=== PATIENT | male | born 1990 | race Caucasian/White ===

== ENCOUNTER 2021-03-18 07:46 | Emergency (ER) | payer OTHER, SELFPAY ==
--- NOTE | ~2021-03-18 | XR_ITS ---
EXAMINATION: XR knee RT min 4V DATE: 03/18/2021 08:08 INDICATION: Right knee pain TECHNIQUE: Four views of the left knee were obtained. COMPARISON: None. FINDINGS: Alignment is normal. No fracture or osteochondral lesion. Joint spaces are normal with no e rosions. No joint effusion/synovitis. Soft tissues are unremarkable. IMPRESSION: 1. No acute osseous abnormality. Reviewed, dictated and finalized at location [facility]
[2021-03-18 07:47] VITALS: BP 161/115; PULSE 98; RESP 14; O2SAT 95
--- NOTE | 2021-03-18 08:20 | ED.LOWEXIN ---
HPI - Extremity Injury (Lower) General Chief Complaint: Extremity Injury, Lower Stated Complaint: R KNEE PAIN ? DISLOCATION Time Seen by Provider: 03/18/21 07:51 Source: patient Mode of arrival: EMS Limitations: no limitations History of Present Illness HPI Narrative: 31-year-old otherwise healthy here with complaints of right knee pain since last few hours. Patient states that he was lifting something heavy and felt a pop in his right knee. Unable to bear weight. He denies any other injuries or complaints at this time. He also mentions that he had previous history of patellar dislocation. MD complaint: knee injury Onset (ago): hour(s) (1) Injury: Right: knee Type of Injury: unknown Place: home Severity: moderate Relieving factors: immobilization Exacerbating factors: weight bearing and movement Context: other (lifting) Associated symptoms: snap/pop sensation Other symptoms: none Related Data Allergies Allergy/AdvReac Type Severity Reaction Status Date / Time Sulfa (Sulfonamide Allergy Unknown Verified 03/18/21 07:50 Antibiotics) Review of Systems Review of Systems: All systems reviewed & are unremarkable except as noted in HPI and below Constitutional: Constitutional: Reports no additional constitutional complaints Eyes: Eyes: Reports no additional eye complaints ENT: Reports system reviewed and no additional complaints, except as documented Cardiovascular: Cardiovascular: Reports no additional cardiovascular complaints Respiratory: Respiratory: Reports no additional respiratory complaints Gastrointestinal: Gastrointestinal: Reports no additional gastrointestinal complaints Musculoskeletal: Musculoskeletal: Reports as per HPI Neurologic: Reports system reviewed and no additional complaints, except as documented Exam Narrative: GENERAL: Well-appearing, well-nourished, and in no acute distress. HEAD: Normocephalic, atraumatic. EYES: PERRLA and EOMI. NECK: Supple. CHEST: Clear to auscultation. No respiratory distress. HEART: Regular rate and rhythm. No murmur heard. Normal peripheral pulses.. EXTREMITIES: Examination of the right knee shows no marked tenderness on gentle palpation. No obvious deformity noted no joint effusion noted painful range of motion. SKIN: Warm, dry, no rash. NEURO: No focal deficits. Alert and oriented x3. PSYCH: Normal mood and affect. Course Course Emergency Course: Inform patient about his x-ray findings. Will place a knee immobilizer. Advised him to take pain medication as prescribed. Follow-up with orthopedic process controller. Vital Signs Vital signs: Vital Signs Pulse Rate 98 03/18/21 07:47 Respiratory Rate 14 03/18/21 07:47 Blood Pressure 161/115 H 03/18/21 07:47 Pulse Oximetry 95 03/18/21 07:47 Pulse Rate 98 03/18/21 07:47 Respiratory Rate 14 03/18/21 07:47 Blood Pressure 161/115 H 03/18/21 07:47 Pulse Oximetry 95 03/18/21 07:47 Discharge Plan Discharge Clinical Impression: Knee sprain Qualifiers: Encounter type: initial encounter Involved ligament of knee: unspecified ligament Laterality: right Qualified Code(s): S83.91XA - Sprain of unspecified site of right knee, initial encounter Patient Disposition: Home, Self-Care Condition: Stable Instructions: Antibiotic Form, Knee Sprain (ED) Additional Instructions: Use knee immobilizer , take pain medications as prescribed , follow with your doctor or orthopedics . Prescriptions: New ibuprofen 600 mg tablet 600 mg PO Q6H PRN (Reason: pain) Qty: 30 RF: 0 Follow-up/Referrals: Db Locke MD [Physician] - Time of Disposition: 08:26
[2021-03-18] MEDS: IBUPROFEN 600 MG TABLET PO (08:34)
== END 2021-03-18 08:56 | disposition home or self-care (01) ==
LOC: ANHED 08:38
PROVIDERS: Emergency Provider Family Medicine
DX: S83.91XA Sprain of unspecified site of right knee, initial encounter (principal); X50.0XXA Overexertion from strenuous movement or load, initial encounter
CPT/HCPCS: 73564; 99283; A9270